=== PATIENT | female | born 1960 | race African-American/Black ===

== ENCOUNTER → 2022-12-29 | Day surgery (SDC) | payer MEDICAID ==
[~2022-12-29] VITALS: Ht 171.4 cm; Wt 93.0 kg
[~2022-12-29] MED LIST: ALBU18HF2 IH; ASCO500C18 PO; ATOG60TA PO; BUPIVACAINE HCL/PF 0.5% (5MG/ML) 10ML ONE; CEFAZOLIN SODIUM 1000MG/VIAL ONE; CHOL2000 PO; DIPHENHYDRAMINE 50MG/ML VIAL IV PRN; FAMO20TA8 PO; FENTANYL CITRATE/PF 50MCG/ML 2ML VIAL IV PRN; FENTANYL CITRATE/PF 50MCG/ML 2ML VIAL ONE; FLUT1BLS3 IH; FURO40TA5 PO; HYDROCODONE/ACETAMINOPHEN 5/325MG TABLET PO PRN; IPRA3AMP9 NEB; LACTATED RINGERS 1,000 ML IV SCH; LEVE1000 PO; LIDOCAINE HCL 1% 20ML VIAL (Pyxis) INJ ONE; LOSA50TA41 PO; METO25TA6 PO; MIDAZOLAM HCL 2 MG/2 ML VIAL ONE; NALOXONE HCL 0.4MG/ML VIAL IV PRN; ONDANSETRON HCL 4MG/2ML INJ IV PRN; ONDANSETRON HCL 4MG/2ML INJ ONE; POTA10CA43 PO; PROPOFOL 200MG/20ML VIAL IV ONE; SIMV-43 PO; SKIN ADHESIVE 0.7 GM EA TOP ONE; SODI4VIA16 IH; UBRO100T PO
[2022-12-29 06:13] LABS: UCG SCREEN NEGATIVE
[2022-12-29] MEDS: HYDROMORPHONE HCL/PF 2MG/ML CPJ IV PRN ×2 (08:45→08:55)
[2022-12-29 10:18] VITALS: BP 111/77
== END | disposition home or self-care (01) ==
LOC: OR 05:13
PROVIDERS: ATTEND Surgery
DX: K40.90 Unilateral inguinal hernia, without obstruction or gangrene, not specified as recurrent (principal); I10 Essential (primary) hypertension; E78.00 Pure hypercholesterolemia, unspecified; K21.9 Gastro-esophageal reflux disease without esophagitis; Z79.899 Other long term (current) drug therapy; Z98.890 Other specified postprocedural states; Z20.822 Contact with and (suspected) exposure to COVID-19; Z88.0 Allergy status to penicillin; Z88.8 Allergy status to other drugs, medicaments and biological substances
CPT/HCPCS: 49505; 81025; 87426; C1781; C9803; J0690; J1170; J1200; J2250; J2405; J2704; J3010; J3490